=== PATIENT | female | born 1960 | race Caucasian/White ===

== ENCOUNTER 2017-10-27 13:52 | Inpatient (IN) | payer SELFPAY ==
[2017-10-27] MEDS ORDERED: Acetaminophen 500 MG TAB ONE (14:24)
[2017-10-27 15:06] LABS: Hemoglobin 13.5 g/dL (12.0-16.0); Mean Corpuscular HGB CONC 34.1 g/dL (32.0-36.0); Mean Corpuscular Hemoglobin 30.7 pg (27.0-31.0); Mean Platelet Volume 7.8 fL (7.4-10.4); Platelet Count 307 thou/uL (130-400); RBC Distribution Width 12.7 % (11.5-14.5); Red Blood Cell (RBC) Count 4.41 mill/uL (4.20-5.40); White Blood Cell (WBC) Count 13.4 thou/uL (4.8-10.8)
[2017-10-27 15:23] LABS: Band 18 % (5-11); Lymphocytes 10 % (21-51); MDiff Complete? YES; Monocytes 3 % (0-10); Neutrophil 69 % (42-75); PLT Morphology Comment Appears Adequate; RBC Morphology Normal
[2017-10-27 15:24] LABS: ALT (SGPT) 16 U/L (8-55); AST (SGOT) 20 U/L (5-34); Albumin 4.2 g/dL (3.5-5.0); Alkaline Phosphatase 115 U/L (40-150); Anion Gap 20 mmol/L (10-20); BUN (Urea Nitrogen) 13 mg/dL (9.8-20.1); Bilirubin, Total 0.8 mg/dL (0.2-1.2); Calc. Creatinine Clearance 0 mL/min (70-130); Calcium 9.9 mg/dL (7.8-10.44); Carbon Dioxide 24 mmol/L (22-29); Chloride 88 mmol/L (98-107); Estimated GFR-MDRD 43; Globulin 4.5 g/dL (2.4-3.5); Glucose 454 mg/dL (70-105); Potassium 3.5 mmol/L (3.5-5.1); Protein, Total 8.7 g/dL (6.0-8.3); Sodium 128 mmol/L (136-145)
--- NOTE | 2017-10-27 15:44 | RAD ---
RADIOGRAPH CHEST 1 VIEW: Date: 10/27/17 HISTORY: 57-year-old female with cough, fever and chills. FINDINGS: There are no air space densities, pulmonary edema, pneumothorax, or cardiomegaly. The lateral costop hrenic angles are sharp. IMPRESSION: No acute cardiopulmonary findings. samantha [] POS: [facility]
[2017-10-27 16:45] LABS: Bilirubin Negative (Negative); Blood, Urine Small (Negative); Clarity Slightly Cloudy (Clear); Glucose, Urine (Dipstick) 500 mg/dL (Negative); Leukocyte Negative (Negative); Nitrite Positive (Negative); Protein, Urine (Dipstick) 100 mg/dL (Neg-Trace); Specific Gravity, Urine 1.015 (1.002-1.036); Urobilinogen 0.2 mg/dL (0.2-1.0)
[2017-10-27 16:54] LABS: Bacteria/HPF 4+ HPF (None Seen); Hyaline Casts/LPF 7-10 HYALINE CAST LPF (0-3 Hyaline); Pathc Cast-AUWi Flag 1.62 (0-2.49); Squamous Epithelial 0-3 HPF (0-3); WBC/HPF 21-50 HPF (0-3)
[2017-10-27] MEDS ORDERED: cefTRIAXone\\ROCEPHIN 2 GM in Sodium Chloride 0.9% 100 ML IVPB ONE (17:45)
[2017-10-27] MEDS ORDERED: Insulin Regular 300 UNITS/3 ML VIAL ONE (20:09)
[2017-10-27] MEDS ORDERED: Sodium Chloride 0.9% 1,000 ML IV SCH (23:48)
[2017-10-27] MEDS ORDERED: Ondansetron ODT 4 MG TAB SL PRN (23:48)
[2017-10-27] MEDS ORDERED: Ondansetron HCl/PF 4 MG/2 ML Vial IVP PRN (23:48)
[2017-10-28 00:15] VITALS: BMI 23.7
[2017-10-28] MEDS ORDERED: Ondansetron HCl/PF 4 MG/2 ML Vial IVP PRN (06:06)
[2017-10-28] MEDS ORDERED: HumaLOG 300 UNITS/3 ML VIAL SC PRN (06:06)
[2017-10-28] MEDS ORDERED: Mag-Al 1200 mg/1200 mg/30 ML UDCUP PO PRN (06:06)
[2017-10-28] MEDS ORDERED: Acetaminophen 325 MG TAB PO PRN (06:06)
[2017-10-28] MEDS ORDERED: Dextrose 5% in Water 1,000 ML IV PRN (06:06)
[2017-10-28] MEDS ORDERED: hydrALAZINE 20 MG/ML VIAL SLOW IVP PRN (06:06)
[2017-10-28] MEDS ORDERED: Guaifenesin DM 100-10/5 ML UDCUP PO PRN (06:06)
[2017-10-28] MEDS ORDERED: Dextrose 50% Abboject 50 ML SYRINGE SLOW IVP PRN (06:06)
[2017-10-28] MEDS ORDERED: PROVENTIL INHALER 6.7 G (200 INHALATIONS) INH PRN (06:06)
[2017-10-28] MEDS ORDERED: Ondansetron ODT 4 MG TAB PO PRN (06:06)
--- NOTE | 2017-10-28 06:21 | HP ---
PRIMARY CARE PHYSICIAN: The patient currently does not have a primary care physician. CHIEF COMPLAINT: Feeling bad with body aches and fever. HISTORY OF PRESENT ILLNESS: Ms. Barnhart is a pleasant 57-year-old female that says she started havi ng symptoms on Tuesday night. She says that she started having cough, body aches, and subjective fe aura. She says the cough was productive of yellowish mucus and she also noted some pain in her chest when she coughs. She also noticed a few days later that her lower back was hurting, but she thought it was just a muscle ache. She also noted some nausea and that her blood sugars have been running hi gh. She had gone in to work and she works at the [id number] and they took her temperatu re and it was 102 and her blood sugar was 486 and for this reason, she was urged to go to the [facility]. In the ER, she was evaluated. A chest x-ray was negative. Flu screen was negative; however, her urine was nitrite positive with 4+ bacteria and many white blood cells and she is being admitted for UTI, possible pyelonephritis as well as bronchitis. REVIEW OF SYSTEMS: Constitutional: Again, she has had subjective fever and chills, but no night swe ats, no weight loss. HEENT: She denies any headache. No dizziness. She did have some scratchiness in her throat. No nasal drainage or congestion. Pulmonary: She has had a cough productive of yell ow sputum, but no hemoptysis. She denies any shortness of breath. Cardiovascular: She has had some pain, but is primarily on the right side of her chest. No PND, no orthopnea. No lower extremity edema. Gastrointestinal: She has had some nausea, but no vomiting, n o abdominal pain, no change in bowels. Genitourinary: She denies any dysuria or frequency, no hemat uria. Musculoskeletal: She does complain of body aches all over, but no muscle weakness. Neurologi c: No seizures, no focal weakness. Psychiatric: No symptoms of anxiety or depression. Skin and In tegument: No skin changes. No rash. PAST MEDICAL HISTORY: Significant for fibromyalgia, systemic lupus, diabetes mellitus type 2, but in sulin-dependent, also has asthma. PAST SURGICAL HISTORY: She has had a bilateral tubal ligation and a D&C. ALLERGIES: PENICILLIN. SOCIAL HISTORY: She is . She denies any smoking. She occasionally drinks. She has 5 childr en. FAMILY HISTORY: Significant for diabetes and asthma. CURRENT MEDICATIONS: Include duloxetine 20 mg daily, insulin NPH 10-15 units twice a day, Proventil HFA inhaler. PHYSICAL EXAMINATION: GENERAL: She is alert and oriented. She appears to be in no acute distress. VITAL SIGNS: Temperature was 98.9, heart rate 88, respiratory rate of 18, temperature is 118/65. HEENT: Her pupils are equal, round, and reactive. Extraocular muscles are intact. Her sclerae are anicteric. Throat, no erythema, no exudates. NECK: No adenopathy, no bruits. LUNGS: She did have some rales in the left mid lung field to the left base as well as some mild expi ratory rhonchi. CARDIOVASCULAR: She has a normal S1 and S2. I do not appreciate an S3 or S4. No murmurs, clicks or rubs. ABDOMEN: Soft. She has some mild diffuse tenderness. There is no rebound or guarding. EXTREMITIES: There is no edema and no skin lesions. NEUROLOGICALLY: The exam is nonfocal. LABORATORY DATA: White blood cell count 13.4, hemoglobin 13.5, hematocrit is 39.7, platelet count is 307. Sodium 128, potassium 3.5, chloride is 88, CO2 is 24, BUN of 13, creatinine 1.28, glucose is 4 54. ASSESSMENT AND PLAN: This is a 57-year-old female that presents with subjective fever as well as bod y aches. She also had findings consistent with urinary tract infection. She is also noted to be hyp onatremic with elevated blood glucose. 1. Urinary tract infection. She will be treated with Levaquin given her PENICILLIN allergy pending the urine culture results. This will also cover for community-acquired pneumonia/bronchitis. 2. The patient has significant upper respiratory symptoms, which actually what brought the patient i n. I suspect she may have an early pneumonia as I did hear some rales on exam. Levaquin should cove r this. I am also concern that she could have some viral component as well even though her influenza screen was negative. We have seen in our facility quite a bit of false negative influenza screens. Therefore, we will place her empirically on Tamiflu and get the viral panel by PCR and if this is ne gative, then the Tamiflu can be discontinued. 3. Poorly controlled diabetes. We will place her back on her usual dose of NPH on the higher end an d also cover her with a sliding scale insulin.
[2017-10-28] MEDS: Sodium Chloride 0.9% 1,000 ML IV SCH ×3 (07:01→23:43)
[2017-10-28] MEDS: HumaLOG 300 UNITS/3 ML VIAL SC PRN ×2 (07:18→18:11)
[2017-10-28] MEDS: Oseltamivir 75 MG CAP PO SCH ×2 (08:43→21:20)
[2017-10-28] MEDS: Famotidine 20 MG TAB PO SCH ×2 (08:44→21:20)
[2017-10-28] MEDS: Enoxaparin Sodium 40 MG/0.4 ML SYRINGE SC SCH (08:44)
[2017-10-28] MEDS: NPH, Human Insulin Isophane 300 UNIT/3 ML VIAL SC SCH ×3 (08:46→21:25)
--- NOTE | 2017-10-28 17:09 | PDOC.PN ---
- Subjective Encounter Start Date: 10/28/17 Encounter Start Time: 17:00 Subjective: f/u for febrile illness and UTI showing Klebsiella and Enterobacter spp. -: Currently on Levaquin and Tamiflu. - Objective Resuscitation Status: Resuscitation Status FULL:Full Resuscitation MAR Reviewed: Yes Vital Signs & Weight: Vital Signs (12 hours) Temp Pulse Resp BP Pulse Ox 10/28/17 16:06 98.7 F 78 18 124/70 93 L 10/28/17 11:05 98.7 F 88 18 117/65 94 L 10/28/17 09:39 83 16 91 L 10/28/17 08:54 98.1 F 10/28/17 08:00 98.1 F 81 16 96 10/28/17 06:06 99.0 F 81 16 106/63 96 Weight Admit Weight 138 lb 6.4 oz Weight 138 lb 6.4 oz I&O: 10/27/17 10/28/17 10/29/17 06:59 06:59 06:59 Intake Total 1200 240 Balance 1200 240 Result Diagrams: 10/27/17 14:53 10/27/17 14:53 Additional Labs: Accuchecks 10/28/17 10/28/17 10/27/17 11:11 06:36 22:02 POC Glucose 243 H 248 H 347 H Microbiology 10/27/17 16:22 Nasal swab Influenza Types A,B Direct EIA - Final 10/27/17 15:10 Urine voided Urine Culture - Preliminary Presumptive Kleb/Enterobacter Radiology Reviewed by me: Yes (PCXR - no acute infiltrate) Phys Exam - Physical Examination Constitutional: NAD HEENT: PERRLA, oral pharynx no lesions Neck: no JVD, supple scattered coarse sounds Respiratory: no wheezing Cardiovascular: RRR Gastrointestinal: soft, non-tender, no distention, positive bowel sounds Musculoskeletal: no edema, pulses present Neurological: normal sensation, moves all 4 limbs Psychiatric: A&O x 3 Skin: normal turgor, cap refill <2 seconds Dx/Plan (1) UTI (urinary tract infection) Status: Acute Comment: Continue Levaquin 500mg IV daily, Klebsiella/ Enterobacter spp preliminarily (2) MIKY (acute kidney injury) Code(s): N17.9 - ACUTE KIDNEY FAILURE, UNSPECIFIED Status: Acute Comment: Continue IVF's, repeat creat in am, avoid nephrotoxic meds and contrast media (3) Diabetes mellitus type II, uncontrolled Code(s): E11.65 - TYPE 2 DIABETES MELLITUS WITH HYPERGLYCEMIA Status: Chronic Comment: Continue NPH insulin 15u sc BID, ISS, IVF's (4) Hyponatremia Code(s): E87.1 - HYPO-OSMOLALITY AND HYPONATREMIA Status: Acute Comment: Suspect pseudohyponatremia due to hyperglycemia - Plan continue antibiotics, respiratory therapy, out of bed/ambulate, DVT proph w/SCDs Stable overall -: Continue Levaquin 500mg IV daily -: Continue Tamiflu 75mg BID -: Await final Ucx -: Await final Resp viral PCR * AM lab: BMP, CBC
[2017-10-29 04:55] LABS: #Eosinphils 0.1 thou/uL (0.0-0.7); #Lymphocytes 1.9 thou/uL (1.20-3.40); #Monocytes 0.6 thou/uL (0.11-0.59); %Basophils 0.6 % (0.0-1.0); %Eosinophils 1.5 % (0.0-10.0); %Lymphocytes 28.6 % (21.0-51.0); %Monocytes 8.4 % (0.0-10.0); Hemoglobin 11.1 g/dL (12.0-16.0); Mean Corpuscular HGB CONC 33.2 g/dL (32.0-36.0); Mean Corpuscular Hemoglobin 30.5 pg (27.0-31.0); Mean Platelet Volume 7.5 fL (7.4-10.4); Platelet Count 199 thou/uL (130-400); RBC Distribution Width 12.7 % (11.5-14.5); Red Blood Cell (RBC) Count 3.64 mill/uL (4.20-5.40); White Blood Cell (WBC) Count 6.6 thou/uL (4.8-10.8)
[2017-10-29 05:11] LABS: Anion Gap 14 mmol/L (10-20); BUN (Urea Nitrogen) 4 mg/dL (9.8-20.1); Calc. Creatinine Clearance 92 mL/min (70-130); Calcium 8.7 mg/dL (7.8-10.44); Carbon Dioxide 27 mmol/L (22-29); Chloride 104 mmol/L (98-107); Estimated GFR-MDRD 90; Glucose 88 mg/dL (70-105); Sodium 142 mmol/L (136-145)
[2017-10-29 05:26] LABS: Potassium 2.6 mmol/L (3.5-5.1)
[2017-10-29] MEDS: Potassium Chloride 20 MEQ TAB PO SCH ×3 (08:03→18:39)
[2017-10-29] MEDS: Oseltamivir 75 MG CAP PO SCH (08:04)
[2017-10-29] MEDS: Famotidine 20 MG TAB PO SCH (08:05)
[2017-10-29] MEDS: Enoxaparin Sodium 40 MG/0.4 ML SYRINGE SC SCH (08:05)
[2017-10-29] MEDS: NPH, Human Insulin Isophane 300 UNIT/3 ML VIAL SC SCH (10:36)
[2017-10-29] MEDS: Sodium Chloride 0.9% 1,000 ML IV SCH (10:52)
[2017-10-29] MEDS: HumaLOG 300 UNITS/3 ML VIAL SC PRN ×2 (12:18→17:04)
--- NOTE | 2017-10-29 15:58 | DIS ---
DATE OF ADMISSION: 10/27/2017 DATE OF DISCHARGE: 10/29/2017 DISCHARGE DIAGNOSES: 1. Urinary tract infection with Escherichia coli. 2. Influenza A positive. 3. Acute kidney injury secondary to dehydration, resolved. 4. Diabetes mellitus type 2, labile. 5. Hyponatremia secondary to hyperglycemia, resolved. 6. Hypokalemia. CONSULTATIONS: None. PERTINENT LABORATORY AND X-RAY FINDINGS: Sodium ranged between 128-142, potassium level ranged betwe en 2.6-3.5, creatinine ranged between 0.68-1.28 with estimated GFR ranging between 43-90. CBC showed a white blood cell count ranging between 6.6-13.4, hemoglobin ranging between 11.1-13.5. Urine cult ure dated 10/27/2017 showed greater than 100,000 colonies of E. coli, sensitive to quinolones. Influ rocio A and B antigen nasal swab on 10/27/2017 negative. Respiratory virus panel by PCR dated 018 positive for influenza A. Portable chest x-ray dated 10/27/2017 showed no acute cardiopulmonary process. HOSPITAL COURSE: The patient was admitted to the medical floor after initially presenting with myalg ias and fever. The patient underwent general evaluation with urinalysis concerning for infectious pr ocess. The patient was placed on empiric IV Levaquin with urine culture confirming the presence of g reater than 100,000 colonies of E. coli, sensitive to quinolones. The patient continued IV Levaquin throughout her hospital course with recommendations to transition to oral Levaquin to complete a 5-da y course after discharge. The patient also underwent evaluation for suspicion of potential influenza with initial nasal swab negative. Viral panel PCR study did reveal evidence of influenza A and the patient received Tamiflu 75 mg b.i.d. The patient was also given intravenous fluids as well as potas sium supplementation and general supportive measures. Overall, the patient did remained clinically s table throughout the hospital course, tolerating regular oral intake, ambulatory without assistance o r difficulty and remaining afebrile by the time of admission. The patient ready for discharge on . DISCHARGE MEDICATIONS: 1. Tamiflu 75 mg 1 tab p.o. b.i.d. x7 doses. 2. Levaquin 500 mg 1 tab p.o. daily x5 days. 3. ProAir HFA 2 puffs inhaled q.4 h. p.r.n. 4. Cymbalta 20 mg p.o. daily. 5. NPH insulin 15 units subcutaneously b.i.d. 6. Followup: The patient may follow up with local [facility] after discharge . CONDITION ON DISCHARGE: Stable. ACTIVITY: ad francisco. DIET: ADA. CODE STATUS: Full. DISPOSITION: Home on 10/29/2017.
[2017-10-29 16:14] VITALS: BP 111/67; TEMP 98.4
== END 2017-10-29 18:42 | disposition home or self-care (01) | DRG 690 ==
LOC: ERS 13:52 → T4-A 21:45
PROVIDERS: ADMIT Internal Medicine; ATTEND Internal Medicine
DX: N39.0 Urinary tract infection, site not specified (principal); N17.9 Acute kidney failure, unspecified; M32.9 Systemic lupus erythematosus, unspecified; E11.65 Type 2 diabetes mellitus with hyperglycemia; E87.1 Hypo-osmolality and hyponatremia; B96.20 Unspecified Escherichia coli [E. coli] as the cause of diseases classified elsewhere; E86.0 Dehydration; J10.1 Influenza due to other identified influenza virus with other respiratory manifestations; E87.6 Hypokalemia; Z98.51 Tubal ligation status; Z88.0 Allergy status to penicillin
CPT/HCPCS: 36415; 36416; 71045; 80048; 80053; 81003; 81015; 85025; 87077; 87086; 87186; 87633; 87804; 94640; 96361; 96365; 96375; J0696; J1650; J1815; J1956; J7050; J7620

== ENCOUNTER 2018-04-07 12:45 | Emergency (ER) | payer SELFPAY ==
[2018-04-07 13:52] LABS: #Eosinphils 0.2 thou/uL (0.0-0.7); #Lymphocytes 1.5 thou/uL (1.20-3.40); #Monocytes 0.5 thou/uL (0.11-0.59); #Neutrophils 5.5 thou/uL (1.40-6.50); %Basophils 0.6 % (0.0-1.0); %Eosinophils 2.2 % (0.0-10.0); %Lymphocytes 19.3 % (21.0-51.0); %Neutrophils 71.8 % (42.0-75.0); Hemoglobin 13.9 g/dL (12.0-16.0); Mean Corpuscular HGB CONC 34.4 g/dL (32.0-36.0); Mean Corpuscular Hemoglobin 29.8 pg (27.0-31.0); Mean Corpuscular Volume 86.5 fL (78.0-98.0); Mean Platelet Volume 7.7 fL (7.4-10.4); Platelet Count 306 thou/uL (130-400); RBC Distribution Width 12.9 % (11.5-14.5); Red Blood Cell (RBC) Count 4.67 mill/uL (4.20-5.40); White Blood Cell (WBC) Count 7.7 thou/uL (4.8-10.8)
[2018-04-07 14:08] LABS: Bilirubin Negative (Negative); Blood, Urine Negative (Negative); Clarity CLEAR (Clear); Glucose, Urine (Dipstick) >=1000 mg/dL (Negative); Leukocyte Negative (Negative); Nitrite Negative (Negative); Protein, Urine (Dipstick) Negative (Neg-Trace); Specific Gravity, Urine 1.042 (1.002-1.036); pH, Urine 5.5 (5.0-9.0)
[2018-04-07 14:12] LABS: Albumin 4.3 g/dL (3.5-5.0); Anion Gap 17 mmol/L (10-20); Calcium 9.6 mg/dL (7.8-10.44); Carbon Dioxide 22 mmol/L (22-29); Chloride 99 mmol/L (98-107); Globulin 4.3 g/dL (2.4-3.5); Glucose 250 mg/dL (70-105); Potassium 3.6 mmol/L (3.5-5.1); Protein, Total 8.6 g/dL (6.0-8.3); Sodium 134 mmol/L (136-145)
[2018-04-07 14:13] LABS: Bilirubin, Total 0.7 mg/dL (0.2-1.2)
[2018-04-07 14:14] LABS: Alkaline Phosphatase 126 U/L (40-150); Calc. Creatinine Clearance 0 mL/min (70-130); Estimated GFR-MDRD 64
[2018-04-07 14:15] LABS: BUN (Urea Nitrogen) 9 mg/dL (9.8-20.1)
[2018-04-07 14:16] LABS: AST (SGOT) 18 U/L (5-34)
[2018-04-07 14:17] LABS: ALT (SGPT) 14 U/L (8-55)
[2018-04-07 14:25] LABS: Lipase 14 U/L (8-78)
--- NOTE | 2018-04-07 15:11 | CT ---
CT OF THE ABDOMEN AND PELVIS WITH CONTRAST: Date: 04/07/18 COMPARISON: None. HISTORY: Abdominal pain that began on Tuesday in the suprapubic region and right lower quadrant. TECHNIQUE: Multiple contiguous axial images were obtained in a CT of the abdomen and pelvis with contrast. Coron al reformats were performed. FINDINGS: There are stranding changes surrounding the sigmoid colon and thickening of the wall of the sigmoid c olon. A few scattered diverticula are seen in this region and this most likely is secondary to acute diverticulitis. The small bowel is normal in caliber. The appendix is not seen. The liver, gallbladder kidneys, adrenal glands, spleen, and pancreas are unremarkable. No free air or free fluid are seen in the abdomen or pelvis. The reproductive organs are unremarkable. No abdominal or pelvic lymphadenopathy seen. IMPRESSION: Acute diverticulitis. POS: [facility]
== END 2018-04-07 17:04 | disposition home or self-care (01) ==
LOC: ERS 12:45
DX: K57.32 Diverticulitis of large intestine without perforation or abscess without bleeding (principal); E11.9 Type 2 diabetes mellitus without complications; J45.909 Unspecified asthma, uncomplicated; Z79.4 Long term (current) use of insulin
CPT/HCPCS: 74177; 80053; 81003; 83690; 85025; 96361; 96374; J2270

== ENCOUNTER 2018-08-20 20:56 | Inpatient (IN) | payer SELFPAY ==
[~2018-08-20 20:56] MED LIST: ISOVUE-370 76%-LOCM 1 ML ONE
[2018-08-20] MEDS ORDERED: Ondansetron PF 4 MG/2 ML Vial ONE (21:05)
[2018-08-20 21:13] LABS: #Basophils 0.1 thou/uL (0.0-0.2); #Eosinphils 0.1 thou/uL (0.0-0.7); #Lymphocytes 2.4 thou/uL (1.20-3.40); #Monocytes 0.4 thou/uL (0.11-0.59); #Neutrophils 4.8 thou/uL (1.40-6.50); %Basophils 0.7 % (0.0-1.0); %Eosinophils 0.7 % (0.0-10.0); %Lymphocytes 31.6 % (21.0-51.0); %Monocytes 4.8 % (0.0-10.0); %Neutrophils 62.3 % (42.0-75.0); Hemoglobin 13.6 g/dL (12.0-16.0); Mean Corpuscular HGB CONC 33.6 g/dL (32.0-36.0); Mean Corpuscular Hemoglobin 29.5 pg (27.0-31.0); Mean Corpuscular Volume 87.7 fL (78.0-98.0); Mean Platelet Volume 8.2 fL (7.4-10.4); Platelet Count 398 thou/uL (130-400); RBC Distribution Width 12.2 % (11.5-14.5); Red Blood Cell (RBC) Count 4.61 mill/uL (4.20-5.40); White Blood Cell (WBC) Count 7.6 thou/uL (4.8-10.8)
[2018-08-20 21:22] LABS: Bicarbonate (HCO3v) 20.3 mmol/L (1.0-85.0); CO2 Tension (PvCO2) 24.9 mmHg (41.0-51.0); Calcium, Ionized 1.13 mmol/L (1.12-1.32); Hemoglobin - Calc 13.9 g/dL (12.0-18.0); O2 Tension (PvO2) 219.3 mmHg (35.0-45.0); Potassium 2.6 mmol/L (3.4-4.7); pH (Venous) 7.518 (7.35-7.45); vO2 Saturation-calc 99.9 % (94-98)
[2018-08-20 21:26] LABS: ALT (SGPT) 14 U/L (8-55); AST (SGOT) 21 U/L (5-34); Albumin 4.5 g/dL (3.5-5.0); Alkaline Phosphatase 101 U/L (40-150); Anion Gap 19 mmol/L (10-20); BUN (Urea Nitrogen) 7 mg/dL (9.8-20.1); Bilirubin, Total 0.6 mg/dL (0.2-1.2); Calc. Creatinine Clearance 0 mL/min (70-130); Carbon Dioxide 19 mmol/L (22-29); Chloride 103 mmol/L (98-107); Estimated GFR-MDRD 53; Globulin 3.5 g/dL (2.4-3.5); Glucose 208 mg/dL (70-105); Lipase 16 U/L (8-78); Sodium 138 mmol/L (136-145)
[2018-08-20 21:29] LABS: Potassium 2.7 mmol/L (3.5-5.1)
[2018-08-20 21:31] LABS: CKMB 0.7 ng/mL (0-6.6); Troponin I Less than 0.010 ng/mL (< 0.028)
[2018-08-20] MEDS ORDERED: Lorazepam 2 MG/ML VIAL ONE (21:41)
[2018-08-20] MEDS ORDERED: Promethazine HCl 25 MG/ML VIAL ONE (22:01)
[2018-08-20] MEDS ORDERED: NS 0.9% w/ 20 MEQ KCL 1,000 ML IV SCH (22:30)
--- NOTE | 2018-08-20 22:30 | ULT ---
RIGHT UPPER QUADRANT ULTRASOUND: HISTORY: Abdominal pain, nausea, and vomiting. TECHNIQUE: Multiple longitudinal and transverse images of the right upper quadrant of the abdomen were obtained using a Multi-Hertz curvilinear transducer. FINDINGS: Real-time and color-flow images demonstrate the liver to be unremarkable. No evidence of a hepatic p arenchymal mass is seen. The pancreas is unremarkable. The gallbladder is within normal limits. Th e common bile duct is of normal size, measuring 3 mm. The right kidney is unremarkable with no significant masses or lesions. IMPRESSION: Normal right upper quadrant ultrasound with no evidence of right upper quadrant pathology seen. POS: [facility]
[2018-08-20 23:46] LABS: Bilirubin Negative (Negative); Blood, Urine Negative (Negative); Clarity CLEAR (Clear); Glucose, Urine (Dipstick) 500 mg/dL (Negative); Leukocyte Negative (Negative); Nitrite Negative (Negative); Protein, Urine (Dipstick) Negative (Neg-Trace); Urobilinogen 0.2 mg/dL (0.2-1.0)
--- NOTE | 2018-08-21 00:02 | CT ---
CT ABDOMEN AND PELVIS WITH CONTRAST: HISTORY: Abdominal pain. Vomiting. TECHNIQUE: IV contrast was given. Oral contrast was not given. FINDINGS: CT images of the abdomen and pelvis demonstrate the lung bases to be unremarkable. No evidence of free intraperitoneal air is seen. The liver and spleen are unremarkable. The gallbladder is within normal limits. The pancreas is unr emarkable. The adrenal glands are unremarkable. The right renal pelvis and the proximal right urete r are somewhat dilated. This was not the case on the patient's previous CT from 04/07/2018. The mor e mid and distal aspects of the right ureter are difficult to visualize. I do not see definite evide nce of an obvious obstructing calculus. Urological consultation may be of use. No dilated loops of small bowel seen. No colonic distention seen. There do appear to be some areas of colonic thickening in the transverse colon, as well as the splenic flexure and a portion of the de scending colon. This may represent changes of colitis. A GI consultation is recommended. L5-S1 disk degenerative changes and vacuum disk changes seen. IMPRESSION: 1. Interval development of dilatation of the right renal pelvis and the proximal right ureter. 2. Abnormal thickening of colonic mucosa in the transverse and proximal descending colon. 3. Some sigmoid colonic diverticulosis is present. Previously noted diverticulitis at this level ap pears to have resolved. POS: [facility]
[2018-08-21] MEDS ORDERED: Levofloxacin 500 mg/D5W 100 ml Premix Bag ONE (00:58)
[2018-08-21] MEDS ORDERED: Ondansetron ODT 4 MG TAB PO PRN (01:40)
[2018-08-21] MEDS ORDERED: Ondansetron PF 4 MG/2 ML Vial IVP PRN (01:40)
[2018-08-21] MEDS ORDERED: Acetaminophen 325 MG TAB PO PRN (01:40)
[2018-08-21] MEDS ORDERED: metroNIDAZOLE 500 MG in Premix Bag 1 BAG IVPB SCH (02:00)
[2018-08-21 02:47] VITALS: BMI 21.9
[2018-08-21] MEDS ORDERED: Potassium Chloride 40 MEQ in Sodium Chloride 0.9% 250 ML 250 ML IVPB SCH (03:00)
[2018-08-21] MEDS ORDERED: Dextrose 50% Abboject 50 ML SYRINGE SLOW IVP PRN (05:29)
[2018-08-21] MEDS ORDERED: Insulin Regular 300 UNITS/3 ML VIAL SC PRN ×2 (05:29)
[2018-08-21] MEDS ORDERED: Dextrose 5% in Water 1,000 ML IV PRN (05:29)
[2018-08-21] MEDS: NS 0.9% w/ 40 MEQ KCL 1,000 ML IV SCH ×2 (05:50→14:08)
[2018-08-21] MEDS ORDERED: Magnesium 2 GM/50 ML 2 GM in Premix Bag 1 BAG IVPB SCH (06:00)
--- NOTE | 2018-08-21 06:13 | HP ---
DATE OF ADMISSION: 08/21/2018 PRIMARY CARE PHYSICIAN: None. The patient is planning to see [facility]. CHIEF COMPLAINT: Nausea, vomiting with elevated blood sugar. HISTORY OF PRESENT ILLNESS: Patient is a 58-year-old female with diabetes mellitus, type 2, presente d to the emergency room with above complaints. Her symptoms started around 04:30 p.m. She had nause a with several episodes of vomiting and dry heaving. She had mild abdominal discomfort that was main ly in the lower quadrants. She also noticed that her blood sugars are running high, for which she to ok extra dose of NPH insulin. She felt generally weak and fatigued. She had some loose stool yester day. She had a colonoscopy 6 years ago. Normally, she is constipated. She denies any sick contacts , fever, or chills. In the emergency room, her initial vital signs showed temperature 97.6, respirat ions 20, pulse 75, blood pressure 128/60 with O2 saturation 100% on room air. She was found to have potassium of 2.7. She received Phenergan with IV fluid, Levaquin, and Flagyl in the emergency room. PAST MEDICAL HISTORY: 1. Diabetes mellitus, type 2. 2. Hospitalization at this facility in 10/2017 for influenzae and urinary tract infection. 3. Systemic lupus erythematosus. 4. Mild intermittent asthma. 5. Fibromyalgia. PAST SURGICAL HISTORY: 1. Tubal ligation. 2. D and C. 3. Colonoscopy, 6 years ago, at a different facility. ALLERGIES: The patient is allergic to PENICILLIN. CURRENT HOME MEDICATIONS: Albuterol inhaler as needed, Novolin N 10-15 units b.i.d. SOCIAL HISTORY: Patient currently lives at home and drinks socially. Denies any smoking or drug use . FAMILY HISTORY: Positive for diabetes and asthma. REVIEW OF SYSTEMS: The following complete review of systems was negative, unless otherwise mentioned in the HPI or below: Constitutional: Weight loss or gain, ability to conduct usual activities. Sk in: Rash, itching. Eyes: Double vision, pain. ENT/Mouth: Nose bleeding, neck stiffness, pain, te nderness. Cardiovascular: Palpitations, dyspnea on exertion, orthopnea. Respiratory: Shortness of breath, wheezing, cough, hemoptysis, fever, or night sweats. Gastrointestinal: Poor appetite, abdo mi pain, heartburn, nausea, vomiting, constipation, or diarrhea. Genitourinary: Urgency, frequen cy, dysuria, nocturia. Musculoskeletal: Pain, swelling. Neurologic/Psychiatric: Anxiety, depressi on. Allergy/Immunologic: Skin rash, bleeding tendency. PHYSICAL EXAMINATION: VITAL SIGNS: As discussed above. GENERAL: This is a 58-year-old female in no apparent distress. Pain improved, feels generally weak and fatigued. HEENT: Head, atraumatic and normocephalic. Sclerae are anicteric. Dry mucous membranes. No oral l esion. NECK: Supple, no JVD, no carotid bruit. LUNGS: Clear to auscultation bilaterally. No wheezing, rales, or rhonchi. HEART: S1, S2 present. Regular rate and rhythm. No rubs or gallops appreciated. ABDOMEN: Soft. Mild generalized tenderness, mainly in the lower quadrant. No rebound or guarding. No costovertebral angle tenderness. EXTREMITIES: No edema or calf tenderness. NEUROLOGIC: Grossly nonfocal. Moves all 4 extremities. PSYCHIATRY: Alert, awake, oriented x3. SKIN: Warm and dry. LYMPH NODES: No palpable lymph nodes in the neck. PERIPHERAL VASCULAR: Radial pulses palpable bilaterally. MUSCULOSKELETAL: No joint swelling or tenderness. SKIN: Warm and dry. LYMPH NODES: No palpable lymph nodes in the neck. LABORATORY FINDINGS: CBC showed WBC 7.6 with hemoglobin 13.6, hematocrit 40.4. Chemistries showed s odium 138, potassium 2.7, chloride 103, bicarbonate 19, BUN 7, creatinine 1.06. LFTs in normal range . Magnesium 1.6. ketones negative. Urinalysis was negative for wbc bacteria. CT scan of the abdom en and pelvis, by my review, showed abnormal thickening of the colonic mucosa in the transverse and t he proximal descending colon with some sigmoid colonic diverticulosis. Right upper quadrant ultrasou nd was negative for acute pathology. EKG, by my review, showed sinus rhythm without significant ST-T -wave changes. IMPRESSION: 1. Nausea and vomiting with abdominal discomfort, probably secondary to colitis versus diverticuliti s. 2. Hyponatremia. 3. Hypomagnesemia. 4. Dehydration. 5. Chronic kidney disease, stage 3. 6. Fibromyalgia. 7. History of systemic lupus erythematosus. 8. Diabetes mellitus, type 2. PLAN: The patient is currently admitted on the telemetry unit due to hypokalemia. We will replace p destinyium and magnesium. We will consult Gastroenterology. IV ciprofloxacin and Flagyl. IV hydratio n. Insulin sliding scale. A.m. labs. Plan of care was discussed with the patient in detail. She stated understanding.
[2018-08-21 07:41] LABS: Anion Gap 7 mmol/L (10-20); BUN (Urea Nitrogen) 5 mg/dL (9.8-20.1); Calc. Creatinine Clearance 74 mL/min (70-130); Calcium 7.8 mg/dL (7.8-10.44); Carbon Dioxide 25 mmol/L (22-29); Chloride 111 mmol/L (98-107); Estimated GFR-MDRD 77; Glucose 163 mg/dL (70-105); Sodium 140 mmol/L (136-145)
[2018-08-21] MEDS ORDERED: Famotidine/PF 20 mg/2ml Vial SLOW IVP SCH (09:00)
[2018-08-21] MEDS ORDERED: Heparin 5,000 UNITS/ML VIAL SC SCH (09:00)
[2018-08-21] MEDS: Famotidine 20 MG TAB PO SCH ×2 (09:55→20:42)
[2018-08-21] MEDS: metroNIDAZOLE 500 MG in Premix Bag 1 BAG IVPB SCH ×2 (11:26→17:39)
--- NOTE | 2018-08-21 11:51 | PDOC.PN ---
- Subjective Encounter Start Date: 08/21/18 Encounter Start Time: 10:45 Subjective: abdominal pain is better, no nausea or vomiting now -: feels better - Objective Resuscitation Status: Resuscitation Status FULL:Full Resuscitation MAR Reviewed: Yes Vital Signs & Weight: Vital Signs (12 hours) Temp Pulse Resp BP Pulse Ox 08/21/18 08:35 98.0 F 72 16 105/55 L 96 08/21/18 04:00 97.2 F L 81 20 101/56 L 95 08/21/18 02:50 99 08/21/18 02:47 98.4 F 97 16 118/57 L 99 Weight Weight 127 lb 9 oz I&O: 08/20/18 08/21/18 08/22/18 06:59 06:59 06:59 Intake Total 500 Balance 500 Result Diagrams: 08/20/18 21:03 08/21/18 06:57 Additional Labs: Accuchecks 08/21/18 08/21/18 08/21/18 11:29 06:17 05:27 POC Glucose 169 H 218 H 61 L 08/21/18 08/20/18 00:15 21:03 POC Glucose 96 217 H Phys Exam - Physical Examination HEENT: PERRLA, moist MMs Neck: no JVD, supple Respiratory: no wheezing, no rales Cardiovascular: RRR, no significant murmur Gastrointestinal: soft, non-tender, positive bowel sounds Musculoskeletal: no edema, pulses present Neurological: non-focal, moves all 4 limbs Psychiatric: normal affect, A&O x 3 Dx/Plan (1) Nausea and vomiting Code(s): R11.2 - NAUSEA WITH VOMITING, UNSPECIFIED Status: Acute Qualifiers: Vomiting type: unspecified Vomiting Intractability: intractable Qualified Code(s): R11.2 - Nausea with vomiting, unspecified (2) Diverticulitis Code(s): K57.92 - DVTRCLI OF INTEST, PART UNSP, W/O PERF OR ABSCESS W/O BLEED Status: Suspected (3) Asthma Code(s): J45.909 - UNSPECIFIED ASTHMA, UNCOMPLICATED Status: Chronic Qualifiers: Asthma severity: mild Asthma persistence: intermittent Asthma complication type: uncomplicated Qualified Code(s): J45.20 - Mild intermittent asthma, uncomplicated (4) Dehydration Code(s): E86.0 - DEHYDRATION Status: Acute (5) Hypokalemia Code(s): E87.6 - HYPOKALEMIA Status: Acute (6) Diabetes mellitus type II, uncontrolled Code(s): E11.65 - TYPE 2 DIABETES MELLITUS WITH HYPERGLYCEMIA Status: Chronic Qualifiers: Glycemic state: with hyperglycemia Qualified Code(s): E11.65 - Type 2 diabetes mellitus with hyperglycemia - Plan on cipro, flagyl, correct electrolytes -: iv fluids -: insulin coverage for now, had dipped down to 60's earlier -: ua is clear, although CT shows changes over right side? no stone -: to amb as tolerated, may tx to med floor * . Review of Systems - Medications/Allergies Allergies/Adverse Reactions: Allergies Allergy/AdvReac Type Severity Reaction Status Date / Time Penicillins Allergy Verified 10/28/17 01:26 Medications: Current Medications Acetaminophen (Tylenol) 650 mg PO Q4H PRN PRN Reason: Headache/Fever/Mild Pain (1-3) Dextrose/Water (Dextrose 50%) 25 gm SLOW IVP PRN PRN PRN Reason: Hypoglycemia Last Admin: 08/21/18 05:50 Dose: 25 gm Famotidine (Pepcid) 20 mg SLOW IVP Q12HR [facility] Last Admin: 08/21/18 09:55 Dose: 20 mg Famotidine (Pepcid) 20 mg PO BID [facility] Last Admin: 08/21/18 09:55 Dose: Not Given Glucagon (Glucagon) 1 mg IM PRN PRN PRN Reason: Hypoglycemia Potassium Chloride/Sodium Chloride (Ns 0.9% W/ 40 Meq Kcl) 1,000 mls @ 100 mls/ hr IV .Q10H [facility] Last Admin: 08/21/18 05:50 Dose: Not Given Metronidazole 500 mg/ Device 100 mls @ 100 mls/hr IVPB 0200,1000,1800 [facility] Last Admin: 08/21/18 11:26 Dose: 100 mls Ciprofloxacin/Dextrose 400 mg/ (Device) 200 mls @ 200 mls/hr IVPB Q12HR [facility] Last Admin: 08/21/18 09:51 Dose: 200 mls Dextrose/Water (D5w) 1,000 mls @ 0 mls/hr IV .Q0M PRN PRN Reason: Hypoglycemia Insulin Human Regular (Humulin R) 0 units SC .BEDTIME SLIDING SC PRN PRN Reason: Bedtime Correctional Scale Insulin Human Regular (Humulin R) 0 units SC .MILD SLIDING SCALE PRN PRN Reason: Mild Correctional Scale Ondansetron HCl (Zofran Odt) 4 mg PO Q6H PRN PRN Reason: Nausea/Vomiting Ondansetron HCl (Zofran) 4 mg IVP Q6H PRN PRN Reason: Nausea/Vomiting Pneumococcal Polyvalent Vaccine (Pneumovax 23) 0.5 ml IM .ONCE ONE Stop: 08/22/18 09:01 Potassium Chloride (Klor-Con) 20 meq PO BID-[facility] Stop: 08/21/18 17:01 Last Admin: 08/21/18 08:13 Dose: 20 meq Sodium Chloride (Flush - Normal Saline) 10 ml IVF PRN PRN PRN Reason: Saline Flush Sodium Chloride (Flush - Normal Saline) 10 ml IVF Q12HR [facility] Last Admin: 08/21/18 09:55 Dose: 10 ml
--- NOTE | 2018-08-21 13:11 | CON ---
DATE OF CONSULTATION: 08/21/2018 CHIEF COMPLAINT: Weakness and nausea and vomiting. HISTORY OF PRESENT ILLNESS: Ms. Barnhart is a 58-year-old woman, who felt fine yesterday morning. 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 By the end of that time, she started fee ling very weak and dizzy. She checked her blood sugar and it just read high. She took 20 units of i nsulin. She checked it again a little while later and again it just registered high and she took ano ther 20 units. She developed some nausea and vomiting with this and came onto the emergency room for further care. She has had some chronic right lower quadrant abdominal discomfort for years. This i mproves when she presses her hand over it somewhat. She has had no change in this symptom associated with the acute onset episode described above. She had 1 loose stool yesterday, but no blood in the stool. She, at baseline, has about 1 movement per day, but it has been hard and difficult to pass. She was diagnosed with diverticulitis by CT scan back in March, when she came to the emergency room at that time. She was treated with antibiotics and those symptoms improved. Her last colonoscopy she states was 10 years ago in [place]. She had a CT scan again on presentation to the ER yesterday. Thi s showed thickening of the transverse colon and proximal descending colon. There is no thickening in the area of the sigmoid, suspected diverticulitis compared to the CT in March. That area had returne d to normal. She received IV fluids, and currently, her nausea and vomiting have resolved and she ju st feels weak, but no ongoing symptoms otherwise. PAST MEDICAL HISTORY: Diabetes mellitus, on insulin; urinary tract infection; diverticulitis; lupus; asthma; fibromyalgia. PAST SURGICAL HISTORY: Tubal ligation. FAMILY HISTORY: Negative for GI malignancies. SOCIAL HISTORY: She has 1 ounce of whiskey per week. No other alcohol, no drugs. No smoking. REVIEW OF SYSTEMS: Negative x10 systems reviewed except as stated in the history of present illness. PHYSICAL EXAMINATION: VITAL SIGNS: Temperature 98.0, pulse 72, blood pressure 105/55. GENERAL: She is in no acute distress, alert and oriented x3. HEENT: Eyes have no scleral icterus. Oropharynx is clear, without lesions. NECK: No cervical or supraclavicular lymphadenopathy. LUNGS: Clear to auscultation bilaterally. HEART: Regular rate and rhythm without murmur. ABDOMEN: Soft. She has minimal tenderness in the right lower quadrant, which she states has been ch ronic for years. Nontender in the epigastric and left abdomen. EXTREMITIES: No lower extremity edema. NEUROLOGIC: Cranial nerves are grossly intact. LABORATORY DATA: White blood cell count 7.6, hemoglobin is 13.6, platelets 398. Sed rate 6. Creati nine 0.77. She had, on presentation, bilirubin 0.6, AST 21, ALT 14, alkaline phosphatase 101, albumi n 1.3, lipase 16. IMPRESSION: Abnormal CT scan of the abdomen and pelvis showing thickening of the transverse colon, s plenic flexure, and proximal descending colon. This was in the setting of acutely elevated blood sug ar with lightheadedness and dizziness. I suspect she had a low blood pressure with likely spilled a significant amount of fluid along with the high blood sugars. She likely became dehydrated and devel oped a mild ischemic colitis, which would explain the colon thickening by CT scan. Her symptoms have resolved with IV fluids. She has no bleeding or diarrhea at this point. She did have an episode of colon thickening of the sigmoid colon back in March. This could have been an episode of diverticulit is or also could have been a mild ischemic colitis; more likely, at that time she had diverticulitis. Her last colonoscopy was in [place] around 10 years ago. All her symptoms currently resolved except for residual weakness. RECOMMENDATIONS: 1. IV fluids and control of her blood sugars. 2. Follow up in GI clinic in 2 weeks. We can arrange outpatient colonoscopy at that time, which is now indicated given the recent episode of diverticulitis that was treated and now suspected mild isch emic colitis.
[2018-08-21 15:23] LABS: Potassium 3.3 mmol/L (3.5-5.1)
[2018-08-21] MEDS: Insulin Regular 300 UNITS/3 ML VIAL SC PRN (17:39)
[2018-08-22] MEDS: metroNIDAZOLE 500 MG in Premix Bag 1 BAG IVPB SCH (02:57)
[2018-08-22] MEDS: NS 0.9% w/ 40 MEQ KCL 1,000 ML IV SCH (03:06)
[2018-08-22 04:55] LABS: #Eosinphils 0.1 thou/uL (0.0-0.7); #Lymphocytes 1.5 thou/uL (1.20-3.40); #Monocytes 0.3 thou/uL (0.11-0.59); #Neutrophils 1.8 thou/uL (1.40-6.50); %Basophils 0.7 % (0.0-1.0); %Eosinophils 3.9 % (0.0-10.0); %Lymphocytes 39.7 % (21.0-51.0); %Monocytes 8.4 % (0.0-10.0); %Neutrophils 47.3 % (42.0-75.0); Hemoglobin 10.9 g/dL (12.0-16.0); Mean Corpuscular HGB CONC 32.8 g/dL (32.0-36.0); Mean Corpuscular Hemoglobin 30.1 pg (27.0-31.0); Mean Corpuscular Volume 91.9 fL (78.0-98.0); Mean Platelet Volume 8.5 fL (7.4-10.4); Platelet Count 215 thou/uL (130-400); RBC Distribution Width 12.4 % (11.5-14.5); White Blood Cell (WBC) Count 3.8 thou/uL (4.8-10.8)
[2018-08-22 05:14] LABS: ALT (SGPT) 22 U/L (8-55); AST (SGOT) 36 U/L (5-34); Alkaline Phosphatase 66 U/L (40-150); Anion Gap 6 mmol/L (10-20); BUN (Urea Nitrogen) Less than 4 mg/dL (9.8-20.1); Bilirubin, Total 0.3 mg/dL (0.2-1.2); Calc. Creatinine Clearance 69 mL/min (70-130); Calcium 8.1 mg/dL (7.8-10.44); Carbon Dioxide 26 mmol/L (22-29); Chloride 109 mmol/L (98-107); Estimated GFR-MDRD 72; Globulin 2.5 g/dL (2.4-3.5); Glucose 239 mg/dL (70-105); Magnesium 1.5 mg/dL (1.6-2.6); Phosphorus 2.7 mg/dL (2.3-4.7); Potassium 4.2 mmol/L (3.5-5.1); Protein, Total 5.5 g/dL (6.0-8.3); Sodium 137 mmol/L (136-145)
[2018-08-22] MEDS: Insulin Regular 300 UNITS/3 ML VIAL SC PRN (06:52)
[2018-08-22] MEDS: Famotidine 20 MG TAB PO SCH (08:18)
[2018-08-22 10:27] VITALS: BP 142/88; TEMP 98
--- NOTE | 2018-08-22 11:59 | PDOC.PN ---
- Subjective Encounter Start Date: 08/22/18 Encounter Start Time: 08:25 Subjective: no abd pain or nausea -: feels better -: had normal stool last night - Objective Resuscitation Status: Resuscitation Status FULL:Full Resuscitation MAR Reviewed: Yes Vital Signs & Weight: Vital Signs (12 hours) Temp Pulse Resp BP BP BP Pulse Ox 08/22/18 10:26 98 F 75 20 142/88 H 98 08/22/18 08:17 98 08/22/18 07:54 98.3 F 58 L 16 125/74 98 08/22/18 05:35 97.9 F 69 20 115/73 96 08/22/18 00:00 98.0 F 63 20 117/68 97 Weight Weight 127 lb 9 oz I&O: 08/21/18 08/22/18 08/23/18 06:59 06:59 06:59 Intake Total 500 1375 540 Balance 500 1375 540 Result Diagrams: 08/22/18 03:56 08/22/18 03:56 Additional Labs: Accuchecks 08/22/18 08/21/18 08/21/18 05:35 20:41 16:45 POC Glucose 250 H 214 H 195 H Phys Exam - Physical Examination HEENT: PERRLA, moist MMs Neck: no JVD, supple Respiratory: no wheezing, no rales Cardiovascular: RRR, no significant murmur Gastrointestinal: soft, non-tender, no distention, positive bowel sounds Musculoskeletal: no edema, pulses present Neurological: non-focal, moves all 4 limbs Psychiatric: normal affect, A&O x 3 Dx/Plan (1) Nausea and vomiting Code(s): R11.2 - NAUSEA WITH VOMITING, UNSPECIFIED Status: Resolved Qualifiers: Vomiting type: unspecified Vomiting Intractability: intractable Qualified Code(s): R11.2 - Nausea with vomiting, unspecified (2) Diverticulitis Code(s): K57.92 - DVTRCLI OF INTEST, PART UNSP, W/O PERF OR ABSCESS W/O BLEED Status: Suspected (3) Asthma Code(s): J45.909 - UNSPECIFIED ASTHMA, UNCOMPLICATED Status: Chronic Qualifiers: Asthma severity: mild Asthma persistence: intermittent Asthma complication type: uncomplicated Qualified Code(s): J45.20 - Mild intermittent asthma, uncomplicated (4) Dehydration Code(s): E86.0 - DEHYDRATION Status: Resolved (5) Hypokalemia Code(s): E87.6 - HYPOKALEMIA Status: Resolved (6) Diabetes mellitus type II, uncontrolled Code(s): E11.65 - TYPE 2 DIABETES MELLITUS WITH HYPERGLYCEMIA Status: Chronic Qualifiers: Glycemic state: with hyperglycemia Qualified Code(s): E11.65 - Type 2 diabetes mellitus with hyperglycemia (7) Ischemic colitis Code(s): K55.9 - VASCULAR DISORDER OF INTESTINE, UNSPECIFIED Status: Acute - Plan hemostable -: is tolerating oral diet -: wants to go home, dc home -: to f/u with for colonoscopy as adv -: to check fingerstick glu bid and record to f/u wtih PCP * .
--- NOTE | 2018-08-22 13:16 | DIS ---
DATE OF ADMISSION: 08/21/2018 DATE OF DISCHARGE: 08/22/2018 DISCHARGE DISPOSITION: To home. PRIMARY DISCHARGE DIAGNOSES: Ischemic colitis, resolved; diabetes mellitus type 2, labile; intractable nausea and vomiting, resolved; history of asthma, stable; and dehydration with hypokalemia, resolved. PROCEDURES DONE DURING HOSPITALIZATION: The patient had right upper quadrant ultrasound done which was normal. CT of the abdomen and pelvis with contrast done showed interval development of dilatation of the right renal pelvis and proximal right ureter, abnormal thickening of colonic mucosa in the transverse and proximal descending colon. Sigmoid diverticulosis seen. Stool for Clostridium difficile, Campylobacter, Shiga toxin were all negative. Blood cultures x2 no growth. H and H 11 and 33, platelet count 215. Discharge sodium 137, BUN less than 4, creatinine 0.8. Liver enzymes were within normal limits. Albumin is 3.0. DISCHARGE MEDICATIONS: NPH insulin 10-15 units subcu twice daily per patient's sliding scale, albuterol inhaler q.4 hourly p.r.n. ALLERGIES: PENICILLIN. INPATIENT CONSULTS: Dr. Nguyen for Gastroenterology. DISCHARGE PLAN: Patient to follow up with Dr. Nguyen for outpatient colonoscopy and primary care physician in 1 week. BRIEF COURSE DURING HOSPITALIZATION: Patient initially came to ER with complaints of severe nausea, vomiting, and elevated blood sugar readings at home. Patient was also dehydrated with hypokalemia. She was aggressively hydrated during her stay here. Patient's initial CAT scan showed findings of colitis in the transverse colon, descending colon in the proximal area. She has had consultation with Dr. Dimitry Nguyen. The patient was suspected to have ischemic colitis likely due to dehydration, hypotension with uncontrolled diabetes. This morning, the patient is ambulating well, eating well, and her nausea and vomiting has completely resolved. She is wanting to go home and will be shortly discharged home. The patient requires outpatient colonoscopy and Dr. Duglas Nguyen's office will call her for the same. Patient has no primary care physician in the outpatient setting and has been advised to see her primary care physician in 1-2 weeks. Please see a [id number] documentation on [facility] for the day of discharge. [facility]
== END 2018-08-22 10:40 | disposition home or self-care (01) | DRG 394 ==
LOC: ERS 20:56 → 2NO 08-21 02:15 → T4-B 08-21 15:35
PROVIDERS: ADMIT Internal Medicine; ATTEND Internal Medicine
DX: K55.9 Vascular disorder of intestine, unspecified (principal); E87.1 Hypo-osmolality and hyponatremia; K57.92 Diverticulitis of intestine, part unspecified, without perforation or abscess without bleeding; M32.9 Systemic lupus erythematosus, unspecified; M79.7 Fibromyalgia; J45.20 Mild intermittent asthma, uncomplicated; Z88.0 Allergy status to penicillin; E83.42 Hypomagnesemia; E11.22 Type 2 diabetes mellitus with diabetic chronic kidney disease; I12.9 Hypertensive chronic kidney disease with stage 1 through stage 4 chronic kidney disease, or unspecified chronic kidney disease; N18.3 Chronic kidney disease, stage 3 (moderate); E87.6 Hypokalemia; E86.0 Dehydration; E11.65 Type 2 diabetes mellitus with hyperglycemia
CPT/HCPCS: 36415; 36416; 74177; 76705; 80048; 80053; 81003; 82010; 82330; 82553; 82803; 83630; 83690; 83735; 84100; 84484; 85025; 85652; 86140; 87040; 87045; 87046; 87077; 87324; 87328; 87329; 87449; 87899; 93005; 96361; 96365; 96366; 96367; 96375; J0744; J1815; J1956; J2060; J2405; J2550; J3480; J7050; S0028

== ENCOUNTER 2018-12-26 13:31 | Outpatient (CLI) | payer OTHER ==
--- NOTE | 2019-01-10 16:25 | MMO ---
Bilateral MAMMO Bilat Screen [facility]. CLINICAL HISTORY: Patient is 58 years old and is seen for screening. The patient has the following family history of breast cancer: paternal grandmother. The patient has no personal history of cancer. VIEWS: The views performed were: bilateral craniocaudal with tomosynthesis and bilateral mediolateral oblique with tomosynthesis. FILMS COMPARED: The present examination has been compared to a prior imaging study performed at [facility] on 11/12/2013. MAMMOGRAM FINDINGS: The breasts are heterogeneously dense, which could obscure a lesion on mammography. There are vascular calcifications seen in the right breast. There are no suspicious masses, suspicious calcifications, or new areas of architectural distortion. IMPRESSION: THERE IS NO MAMMOGRAPHIC EVIDENCE OF MALIGNANCY. A ROUTINE FOLLOW-UP MAMMOGRAM IN 1 YEAR IS RECOMMENDED. THE RESULTS OF THIS EXAM WERE SENT TO THE PATIENT. ACR BI-RADS Category 2 - Benign finding MAMMOGRAPHY NOTE: 1. A negative mammogram report should not delay a biopsy if a dominant of clinically suspicious mass is present. 2. Approximately 10% to 15% of breast cancers are not detected by mammography. 3. Adenosis and dense breasts may obscure an underlying neoplasm.
== END 2018-12-26 13:32 | disposition home or self-care (01) ==
LOC: BICMAMMO 13:31
PROVIDERS: ATTEND Nurse Practitioner Family
DX: Z12.31 Encounter for screening mammogram for malignant neoplasm of breast (principal); Z80.3 Family history of malignant neoplasm of breast
CPT/HCPCS: 77063; 77067